=== PATIENT | male | born 1995 | race Caucasian/White ===

== ENCOUNTER 2024-12-19 15:23 | Emergency (ER) | payer OTHER ==
[~2024-12-19] VITALS: Ht 162.6 cm; Wt 56.7 kg
[2024-12-19] MEDS ORDERED: ONDANSETRON 4 MG TAB.RAPDIS ONE (16:01)
[2024-12-19] MEDS ORDERED: HYDROCODONE/APAP 5/325MG TABLET ONE (16:01)
[2024-12-19] MEDS ORDERED: TDAP [DIPH/PERTUSSIS/TET] 0.5 ML VIAL IM ONE (16:02)
[2024-12-19] MEDS: ONDANSETRON 4 MG TAB.RAPDIS SL ONE (16:19)
[2024-12-19] MEDS: TDAP [DIPH/PERTUSSIS/TET] 0.5 ML VIAL IM ONE (16:20)
[2024-12-19] MEDS: HYDROCODONE/APAP 5/325MG TABLET PO ONE (16:21)
[2024-12-19] MEDS ORDERED: AMOX-430 PO (17:23)
[2024-12-19] MEDS ORDERED: HYDR-3973 PO (17:23)
[2024-12-19] MEDS ORDERED: IBUP-1490 PO (17:25)
[2024-12-19] MEDS ORDERED: IBUP-1957 PO (17:25)
[2024-12-19 17:56] VITALS: BP 119/72; TEMP 98; O2SAT 99
== END 2024-12-19 17:56 | disposition home or self-care (01) ==
LOC: ER 15:33
DX: S01.21XA Laceration without foreign body of nose, initial encounter (principal); M54.2 Cervicalgia; R11.0 Nausea; R51.9 Headache, unspecified; J45.909 Unspecified asthma, uncomplicated; Z79.1 Long term (current) use of non-steroidal anti-inflammatories (NSAID); V43.52XA Car driver injured in collision with other type car in traffic accident, initial encounter; Y93.89 Activity, other specified; Y92.488 Other paved roadways as the place of occurrence of the external cause; Y99.8 Other external cause status
CPT/HCPCS: 99285; 72125; 90471; 90715; 70450; 70486; L0172; Q0162